=== PATIENT | female | born 1985 | race Caucasian/White ===

== ENCOUNTER 2018-03-25 21:37 | Emergency (ER) | payer OTHER ==
[2018-03-25 22:01] VITALS: RESP 18
[2018-03-25 22:53] LABS: Appearance,Urine Clear (Clear); Basophils # (A) 0.1 k/uL (0-0.2); Basophils % (A) 1 %; Bilirubin,Urine Negative (Negative); Blood,Urine Negative (Negative); Color,Urine Light Yellow; Eosinophils # (A) 0.6 k/uL (0-0.7); Eosinophils % (A) 6 %; Glucose,Urine (UA) Negative (Negative); HCT 46.5 % (34.0-46.0); HGB 15.9 gm/dL (11.4-16.0); Ketones,Urine Negative (Negative); Leukocyte Esterase,Urine Negative (Negative); Lymphocytes # (A) 3.7 k/uL (1.0-4.8); Lymphocytes % (A) 33 %; MCH 30.6 pg (25.0-35.0); MCHC 34.2 g/dL (31.0-37.0); MCV 89.4 fL (80.0-100.0); Mean Platelet Volume 6.5; Monocytes # (A) 0.4 k/uL (0-1.0); Monocytes % (A) 4 %; Neutrophils # (A) 6.2 k/uL (1.3-7.7); Neutrophils % (A) 56 %; Nitrite,Urine Negative (Negative); Platelet Count 264 k/uL (150-450); Protein,Urine Negative (Negative); RDW 12.9 % (11.5-15.5); Specific Gravity,Urine 1.005 (1.001-1.035); Urobilinogen,Urine <2.0 mg/dL (<2.0); WBC 11.2 k/uL (3.8-10.6)
[2018-03-25 23:07] LABS: ALT 25 U/L (9-52); AST 17 U/L (14-36); Albumin 4.6 g/dL (3.5-5.0); Alkaline Phosphatase 68 U/L (38-126); Amylase 45 U/L (30-110); Anion Gap 6 mmol/L; Blood Urea Nitrogen 10 mg/dL (7-17); Calcium 9.8 mg/dL (8.4-10.2); Carbon Dioxide 28 mmol/L (22-30); Chloride 107 mmol/L (98-107); Glucose 90 mg/dL (74-99); Lipase 89 U/L (23-300); Potassium 4.1 mmol/L (3.5-5.1); Sodium 141 mmol/L (137-145); Total Bilirubin 0.3 mg/dL (0.2-1.3); Total Protein 7.5 g/dL (6.3-8.2)
[2018-03-26] MEDS ORDERED: KETOROLAC 30 MG/ML 1 ML VIAL IVP STA (00:50)
[2018-03-26] MEDS ORDERED: ONDANSETRON 4 MG/2 ML VIAL IVP STA (00:50)
[2018-03-26] MEDS ORDERED: SODIUM CHLORIDE 0.9% 1,000 ML IV STA (00:50)
--- NOTE | 2018-03-26 00:59 | ED ---
Abdominal Pain HPI - General Chief Complaint: Abdominal Pain Stated Complaint: Abdminal Pain Time Seen by Provider: 03/26/18 00:30 Source: patient, RN notes reviewed Mode of arrival: wheelchair Limitations: no limitations - History of Present Illness Initial Comments: This is a 32-year-old female who presents to the emergency department with chief complaint of right lower quadrant abdominal pain. Patient states that between 3 and 4 last evening she developed a cramp-like sensation in her right lower quadrant. She states that the pain has steadily progressed and she now describes it as a pressure feeling. Patient states that the pain is constant. Currently rates it as 8/10. There are no relieving or exacerbating factors. Patient does report a history of cholecystectomy and bilateral ovarian cysts. She admits to nausea but denies vomiting. States that prior to 1 PM yesterday she did have loose stools. Denies any fevers or chills, chest pain or shortness of breath. - Related Data Previous Rx's Medication Instructions Recorded Ibuprofen [Motrin] 600 mg PO Q6HR PRN #40 tab 07/09/14 Cyclobenzaprine [Flexeril] 1 - 2 tab PO TID #20 tablet 01/20/15 Hydrocodone/Acetaminophen [[place] 1 each PO Q6HR PRN #20 tab 01/20/15 5-325] Allergies Allergy/AdvReac Type Severity Reaction Status Date / Time amoxicillin [Amoxicillin] Allergy Rash/Hives Verified 01/20/15 10:02 Penicillins Allergy Rash/Hives Verified 01/20/15 10:02 Review of Systems ROS Statement: Those systems with pertinent positive or pertinent negative responses have been documented in the HPI. ROS Other: All systems not noted in ROS Statement are negative. Past Medical History Past Medical History: No Reported History Additional Past Medical History / Comment(s): RECENT ABNORMAL PAP SMEAR. Obstetric history: First was a vaginal delivery in 2006 6 lbs. 9 oz. at 39 weeks. Her second was a vaginal delivery 7 lbs. 6 oz. at 38 weeks. This is her third . She's. had care with Dr. Chavira since 6 weeks gestation. Blood type is A+, rubella nonimmune, hepatitis B negative, HIV nonreactive, RPR nonreactive, quad screen negative. Normal anatomy. ultrasound at 19 weeks. History of Any Multi-Drug Resistant Organisms: None Reported Past Surgical History: Cholecystectomy Additional Past Surgical History / Comment(s): D&C, ovarian cystectomy Past Anesthesia/Blood Transfusion Reactions: Motion Sickness, Postoperative Nausea & Vomiting (PONV) Past Psychological History: No Psychological Hx Reported Smoking Status: Current every day smoker Past Alcohol Use History: None Reported Past Drug Use History: None Reported - Past Family History Mother Family Medical History: Cancer, Deep Vein Thrombosis (DVT) General Exam - General Exam Comments Initial Comments: General: Awake and alert, well-developed; in no apparent distress. HEENT: Head atraumatic, normocephalic. Pupils are equal, round and reactive to light. Extraocular movements intact. Oropharynx moist without erythema or exudate. Neck: Supple. Normal ROM. Cardiovascular: Regular rate and rhythm. No murmurs, rubs or gallops. Chest symmetrical. Respiratory: Lungs clear to auscultation bilaterally. No wheezes, rales or rhonchi. Normal respiratory effort with no use of accessory muscles. Abdomen: Soft, non-distended. Tenderness on palpation of right lower quadrant with rebound. No rigidity or guarding. Normal bowel sounds in all 4 quadrants. Musculoskeletal: Normal ROM, no tenderness bilateral upper and lower extremities. Skin: [place], warm and dry without rashes or lesions. Neurological: Alert and oriented x3. CN II-XII grossly intact. Speech is fluent and answers are appropriate. No focal neuro deficits. Psychiatric: Normal mood and affect. No overt signs of depression or anxiety noted. Limitations: no limitations Course Vital Signs 03/25/18 03/26/18 03/26/18 21:58 00:30 02:25 Temperature 98.0 F 98.1 F 97.6 F Pulse Rate 83 68 66 Respiratory 18 18 18 Rate Blood Pressure 120/77 122/59 115/59 O2 Sat by Pulse 98 97 97 Oximetry Medical Decision Making - Medical Decision Making This is a 32-year-old female who presents to the emergency department with chief complaint right lower quadrant abdominal pain that started yesterday. Patient describes the pain as a dull cramping sensation that has progressed into a pressure like feeling. Reports nausea but denies vomiting. There is tenderness on palpation of the right lower quadrant with rebound. Ultrasound of the pelvis and appendix was obtained which revealed no significant abnormalities. Appendix was not visualized in its entirety and ultrasound of the pelvis did reveal simple ovarian cysts. On reexamination, patient continued to complain of pain. Discussed obtaining a CT scanned and patient consents to this. Computed tomography scan again showed bilateral ovarian cysts , however no other acute abnormalities. Normal appendix. Patient's vital signs are stable and she is in no acute distress. She will be discharged home at this time. Recommended following up with her primary care provider within 1- 2 days. She is in agreement and voices understanding. All questions were answered. - Lab Data Result diagrams: 03/25/18 22:25 03/25/18 22:25 Lab Results 03/25/18 03/25/18 03/25/18 Range/Units 22:25 22:25 22:25 WBC 11.2 H (3.8-10.6) k/uL RBC 5.20 (3.80-5.40) m/uL Hgb 15.9 (11.4-16.0) gm/dL Hct 46.5 H (34.0-46.0) % MCV 89.4 (80.0-100.0) fL MCH 30.6 (25.0-35.0) pg MCHC 34.2 (31.0-37.0) g/dL RDW 12.9 (11.5-15.5) % Plt Count 264 (150-450) k/uL Neutrophils % 56 % Lymphocytes % 33 % Monocytes % 4 % Eosinophils % 6 % Basophils % 1 % Neutrophils # 6.2 (1.3-7.7) k/uL Lymphocytes # 3.7 (1.0-4.8) k/uL Monocytes # 0.4 (0-1.0) k/uL Eosinophils # 0.6 (0-0.7) k/uL Basophils # 0.1 (0-0.2) k/uL Sodium 141 (137-145) mmol/L Potassium 4.1 (3.5-5.1) mmol/L Chloride 107 (98-107) mmol/L Carbon Dioxide 28 (22-30) mmol/L Anion Gap 6 mmol/L BUN 10 (7-17) mg/dL Creatinine 0.70 (0.52-1.04) mg/dL Est GFR (CKD-EPI)AfAm >90 (>60 ml/min/1.73 sqM) Est GFR (CKD-EPI)NonAf >90 (>60 ml/min/1.73 sqM) Glucose 90 (74-99) mg/dL Plasma Lactic Acid Antony 0.9 (0.7-2.0) mmol/L Calcium 9.8 (8.4-10.2) mg/dL Total Bilirubin 0.3 (0.2-1.3) mg/dL AST 17 (14-36) U/L ALT 25 (9-52) U/L Alkaline Phosphatase 68 (38-126) U/L Total Protein 7.5 (6.3-8.2) g/dL Albumin 4.6 (3.5-5.0) g/dL Amylase 45 (30-110) U/L Lipase 89 (23-300) U/L Urine Color Urine Appearance (Clear) Urine pH (5.0-8.0) Ur Specific [place] (1.001-1.035) Urine Protein (Negative) Urine Glucose (UA) (Negative) Urine Ketones (Negative) Urine Blood (Negative) Urine Nitrite (Negative) Urine Bilirubin (Negative) Urine Urobilinogen (<2.0) mg/dL Ur Leukocyte Esterase (Negative) Urine HCG, Qual (Not Detectd) 03/25/18 03/25/18 Range/Units 22:25 22:25 WBC (3.8-10.6) k/uL RBC (3.80-5.40) m/uL Hgb (11.4-16.0) gm/dL Hct (34.0-46.0) % MCV (80.0-100.0) fL MCH (25.0-35.0) pg MCHC (31.0-37.0) g/dL RDW (11.5-15.5) % Plt Count (150-450) k/uL Neutrophils % % Lymphocytes % % Monocytes % % Eosinophils % % Basophils % % Neutrophils # (1.3-7.7) k/uL Lymphocytes # (1.0-4.8) k/uL Monocytes # (0-1.0) k/uL Eosinophils # (0-0.7) k/uL Basophils # (0-0.2) k/uL Sodium (137-145) mmol/L Potassium (3.5-5.1) mmol/L Chloride (98-107) mmol/L Carbon Dioxide (22-30) mmol/L Anion Gap mmol/L BUN (7-17) mg/dL Creatinine (0.52-1.04) mg/dL Est GFR (CKD-EPI)AfAm (>60 ml/min/1.73 sqM) Est GFR (CKD-EPI)NonAf (>60 ml/min/1.73 sqM) Glucose (74-99) mg/dL Plasma Lactic Acid Antony (0.7-2.0) mmol/L Calcium (8.4-10.2) mg/dL Total Bilirubin (0.2-1.3) mg/dL AST (14-36) U/L ALT (9-52) U/L Alkaline Phosphatase (38-126) U/L Total Protein (6.3-8.2) g/dL Albumin (3.5-5.0) g/dL Amylase (30-110) U/L Lipase (23-300) U/L Urine Color Light Yellow Urine Appearance Clear (Clear) Urine pH 6.0 (5.0-8.0) Ur Specific [place] 1.005 (1.001-1.035) Urine Protein Negative (Negative) Urine Glucose (UA) Negative (Negative) Urine Ketones Negative (Negative) Urine Blood Negative (Negative) Urine Nitrite Negative (Negative) Urine Bilirubin Negative (Negative) Urine Urobilinogen <2.0 (<2.0) mg/dL Ur Leukocyte Esterase Negative (Negative) Urine HCG, Qual Not Detected (Not Detectd) - Radiology Data Radiology results: report reviewed Transvaginal ultrasound impression: Normal uterus and endometrium. No solid adnexal mass. No evidence of ovarian torsion. Simple bilateral ovarian cysts. Ultrasound abdomen appy impression: Appendix is not seen. No solid or cystic masses identified. CT abdomen and pelvis with contrast impression: Bilateral ovarian cysts. Otherwise negative computed tomography scan of the abdomen and pelvis. Normal appendix. Disposition Clinical Impression: Abdominal pain Disposition: HOME SELF-CARE Condition: Good Instructions: Abdominal Pain (ED) Additional Instructions: Please follow up with primary care provider within 1-2 days. Return to emergency department if symptoms should worsen or any concerns arise. Is patient prescribed a controlled substance at d/c from ED?: No Referrals: None,Stated [Primary Care Provider] - 1-2 days Time of Disposition: 02:33
--- NOTE | 2018-03-26 01:39 | US ---
EXAMINATION TYPE: US abdomen APPY DATE OF EXAM: 03/26/2018 COMPARISON: NONE CLINICAL HISTORY: Pain. RLQ pain APPENDIX Is the appendix seen in its entirety from the proximal cecum to distal end: No Is the appendix compressible: Yes Does the appendix wall appear hypervascular: No Is an appendicolith present: No Is there inflammatory changes or free fluid present: No Appendix is not seen in its entirety. IMPRESSION: Appendix is not seen. No solid or cystic masses identified.
--- NOTE | 2018-03-26 01:40 | US ---
EXAMINATION TYPE: US transvaginal DATE OF EXAM: 03/26/2018 COMPARISON: NONE CLINICAL HISTORY: Pain. RLQ pain TECHNIQUE: Transvaginal (TV). EXAM MEASUREMENTS: Uterus: 6.2 x 4.4 x 5.6 cm Endometrial Stripe: 0.7 cm Right Ovary: 2.8 x 2.0 x 2.4 cm Left Ovary: 2.0 x 2.3 x 4.3 cm 1. Uterus: Retroverted wnl 2. Endometrium: 3. Right Ovary: Cystic area seen measuring 2.0 x 1.6 x 2.2 cm 4. Left Ovary: Cystic area seen measuring 1.8 x 1.4 x 1.8 cm Spectral, color and waveform doppler imaging shows good arterial and venous flow within the ovaries ; there is no evidence for ovarian torsion. 5. Bilateral Adnexa: wnl 6. Posterior cul-de-sac: wnl IMPRESSION: Normal uterus and endometrium. No solid adnexal mass. No evidence of ovarian torsion. Sim ple bilateral ovarian cysts.
--- NOTE | 2018-03-26 02:20 | CT ---
EXAMINATION TYPE: CT abdomen pelvis w con DATE OF EXAM: 03/26/2018 COMPARISON: None HISTORY: No prior, RLQ pain, elevated WBC CT DLP: 370.20 mGycm Automated exposure control for dose reduction was used. TECHNIQUE: Helical acquisition of images was performed from the lung bases through the pelvis. CONTRAST: Performed without Oral Contrast and with IV Contrast, patient injected with 100 mL of Isovue 300. FINDINGS: Lung bases are clear. There is no pleural effusion. There are small hiatal hernia. Heart size is norm al. Liver spleen pancreas appear normal. There are clips from cholecystectomy. Bile ducts are not dilated . There is no adrenal mass. Kidneys show satisfactory contrast opacification. There is no hydronephro sis. There is no retroperitoneal adenopathy. There is no ascites. Bladder distends smoothly. There is no lytic mass. There are cysts on both ovaries that measure approximately 2 cm. There is no free fl uid in the pelvis. The appendix appears normal. Appendix is medial and extends into the pelvis. Bony structures are intact. IMPRESSION: BILATERAL OVARIAN CYSTS. OTHERWISE NEGATIVE CT SCAN OF THE ABDOMEN AND PELVIS. NORMAL APPENDIX.
[2018-03-26 02:26] VITALS: BP 115/59; PULSE 66; TEMP 97.6
== END 2018-03-26 02:48 | disposition home or self-care (01) ==
LOC: EC 21:37
DX: R10.31 Right lower quadrant pain (principal); R11.0 Nausea; N83.201 Unspecified ovarian cyst, right side; N83.202 Unspecified ovarian cyst, left side; F17.200 Nicotine dependence, unspecified, uncomplicated; Z90.49 Acquired absence of other specified parts of digestive tract; Z88.0 Allergy status to penicillin
CPT/HCPCS: 36415; 80053; 82150; 83605; 83690; 85025; 81003; 81025; 87040; 93975; 76705; 76830; 74177; 99284; 96374; 96375; 96361 ×2; J2405; J1885; Q9967

== ENCOUNTER 2018-08-31 17:04 | Observation (INO) | payer OTHER ==
[2018-08-31] MEDS ORDERED: SODIUM CHLORIDE 0.9% 1,000 ML IV STA (17:54)
[2018-08-31] MEDS ORDERED: KETOROLAC 30 MG/ML 1 ML VIAL IVP STA (17:54)
--- NOTE | 2018-08-31 17:54 | ED ---
General Adult HPI - General Source: patient, RN notes reviewed Mode of arrival: ambulatory Limitations: no limitations <Wiliam Berrios - Last Filed: 08/31/18 20:54> <Chapin Logan - Last Filed: 08/31/18 20:56> - General Chief complaint: Abdominal Pain Stated complaint: ABDOMINAL PAIN, RT SIDE Time Seen by Provider: 08/31/18 17:27 - History of Present Illness Initial comments: 32-year-old female presents to the emergency department for a chief complaint of right sided abdominal pain times one day. Patient states this started yesterday. Patient describes the pain as a pressure in her right mid abdomen. She rates her pain at a 7 out of 10. Patient denies any alleviating factors. Patient denies anything making the pain worse. Patient admits to nausea but denies vomiting. Patient denies dysuria. She states her bowel movements have been softer and more frequent than normal. Patient denies fevers or chills. Patient does admit to history of bilateral ovarian cysts. She denies appendectomy. Patient has no other complaints at this time including shortness of breath, chest pain, headache, or visual changes. ( Wiliam Berrios) - Related Data Home Medications Medication Instructions Recorded Confirmed No Known Home Medications 08/31/18 08/31/18 Allergies Allergy/AdvReac Type Severity Reaction Status Date / Time amoxicillin [Amoxicillin] Allergy Rash/Hives Verified 08/31/18 17:14 Penicillins Allergy Rash/Hives Verified 08/31/18 17:14 Review of Systems ROS Other: All systems not noted in ROS Statement are negative. <Wiliam Berrios - Last Filed: 08/31/18 20:54> ROS Other: All systems not noted in ROS Statement are negative. <Chapin Logan - Last Filed: 08/31/18 20:56> ROS Statement: Those systems with pertinent positive or pertinent negative responses have been documented in the HPI. Past Medical History Past Medical History: No Reported History Additional Past Medical History / Comment(s): RECENT ABNORMAL PAP SMEAR. Obstetric history: First was a vaginal delivery in 2006 6 lbs. 9 oz. at 39 weeks. Her second was a vaginal delivery 7 lbs. 6 oz. at 38 weeks. This is her third . She's. had care with Dr. Chavira since 6 weeks gestation. Blood type is A+, rubella nonimmune, hepatitis B negative, HIV nonreactive, RPR nonreactive, quad screen negative. Normal anatomy. ultrasound at 19 weeks. History of Any Multi-Drug Resistant Organisms: None Reported Past Surgical History: Cholecystectomy Additional Past Surgical History / Comment(s): D&C, ovarian cystectomy Past Anesthesia/Blood Transfusion Reactions: Motion Sickness, Postoperative Nausea & Vomiting (PONV) Past Psychological History: No Psychological Hx Reported Smoking Status: Current every day smoker Past Alcohol Use History: Rare Past Drug Use History: None Reported - Past Family History Mother Family Medical History: Cancer, Deep Vein Thrombosis (DVT) <Wiliam Berrios P - Last Filed: 08/31/18 20:54> General Exam Limitations: no limitations General appearance: alert, in no apparent distress Head exam: Present: atraumatic, normocephalic, normal inspection Eye exam: Present: normal appearance, PERRL, EOMI. Absent: scleral icterus, conjunctival injection, periorbital swelling ENT exam: Present: normal exam, mucous membranes moist Neck exam: Present: normal inspection, full ROM. Absent: tenderness, meningismus, lymphadenopathy Respiratory exam: Present: normal lung sounds bilaterally. Absent: respiratory distress, wheezes, rales, rhonchi, stridor Cardiovascular Exam: Present: regular rate, normal rhythm, normal heart sounds. Absent: systolic murmur, diastolic murmur, rubs, gallop, clicks GI/Abdominal exam: Present: soft, tenderness (Tenderness noted in the right and left lower quadrants.), normal bowel sounds, other (Positive Rovsing sign, positive obturator, mcburney point tenderness). Absent: distended, guarding, rebound (No significant rebound tenderness at this time.), rigid External exam: Present: normal external exam Speculum exam: Present: normal speculum exam. Absent: erythema, vaginal discharge, cervical discharge, vaginal bleeding, foreign body, tissue, laceration By manual exam: Present: normal by manual exam. Absent: cervical motion tenderness, adnexal tenderness, adnexal mass, uterine enlargement, uterine tenderness Neurological exam: Present: alert, oriented X3, CN II-XII intact Psychiatric exam: Present: normal affect, normal mood <Wiliam Berrios P - Last Filed: 08/31/18 20:54> Course <Wiliam Berrios - Last Filed: 08/31/18 20:54> <Chapin Logan - Last Filed: 08/31/18 20:56> Vital Signs 08/31/18 08/31/18 17:12 20:28 Temperature 98.1 F 98.3 F Pulse Rate 84 88 Respiratory 18 19 Rate Blood Pressure 108/69 119/56 O2 Sat by Pulse 99 98 Oximetry - Reevaluation(s) Reevaluation #1: 08/31/18 20:54 Dr. Alexander requests patient be placed on Levaquin. (Wiliam Berrios) Medical Decision Making - Lab Data Result diagrams: 08/31/18 18:15 08/31/18 18:15 <Wiliam Berrios - Last Filed: 08/31/18 20:54> - Lab Data Result diagrams: 08/31/18 18:15 08/31/18 18:15 <Chapin Logan - Last Filed: 08/31/18 20:56> - Medical Decision Making 32-year-old female presents to the emergency department for a chief complaint of abdominal pain times one day. Patient states this started yesterday. Patient states it is mid right-sided abdominal pain. She denies any pelvic pain. I did do a pelvic exam as patient has a history of ovarian cysts and there is no tenderness on exam. Patient refused gonorrhea and chlamydia swabs stating these are painful to her and she no she does not have this. On exam patient is well appearing. Patient does have right lower quadrant tenderness positive McBurney point tenderness. Positive Rovsing and obturator sign. No significant rebound tenderness at this time. Vitals are within acceptable limits. She is afebrile and has not had any fevers here or at home. CMP unremarkable. Urine is negative. CBC does show a white count of 12.9. Blood cultures pending. Patient does not meet sepsis criteria. CT does show a thickened appendix consistent with acute appendicitis which is new compared to old exam. Given the CT finding as well as exam findings patient will be admitted for appendicitis. (Wiliam Berrios) I, Ivan Logan, personally saw and examined the patient. I have reviewed and agree with the PA findings, including all diagnostic interpretations and treatment plans as written unless otherwise stated. I was present for the mcneal portions of any procedures performed and the inclusive time noted for any critical care statement. (Chapin Logan) - Lab Data Lab Results 08/31/18 08/31/18 08/31/18 Range/Units 18:15 18:15 18:15 WBC 12.9 H (3.8-10.6) k/uL RBC 4.79 (3.80-5.40) m/uL Hgb 14.4 (11.4-16.0) gm/dL Hct 43.2 (34.0-46.0) % MCV 90.1 (80.0-100.0) fL MCH 30.0 (25.0-35.0) pg MCHC 33.2 (31.0-37.0) g/dL RDW 12.5 (11.5-15.5) % Plt Count 226 (150-450) k/uL Neutrophils % 73 % Lymphocytes % 20 % Monocytes % 4 % Eosinophils % 2 % Basophils % 0 % Neutrophils # 9.4 H (1.3-7.7) k/uL Lymphocytes # 2.5 (1.0-4.8) k/uL Monocytes # 0.5 (0-1.0) k/uL Eosinophils # 0.3 (0-0.7) k/uL Basophils # 0.0 (0-0.2) k/uL Sodium 139 (137-145) mmol/L Potassium 4.3 (3.5-5.1) mmol/L Chloride 105 (98-107) mmol/L Carbon Dioxide 24 (22-30) mmol/L Anion Gap 10 mmol/L BUN 12 (7-17) mg/dL Creatinine 0.85 (0.52-1.04) mg/dL Est GFR (CKD-EPI)AfAm >90 (>60 ml/min/1.73 sqM) Est GFR (CKD-EPI)NonAf >90 (>60 ml/min/1.73 sqM) Glucose 93 (74-99) mg/dL Calcium 9.5 (8.4-10.2) mg/dL Total Bilirubin 0.6 (0.2-1.3) mg/dL AST 17 (14-36) U/L ALT 21 (9-52) U/L Alkaline Phosphatase 66 (38-126) U/L Total Protein 7.6 (6.3-8.2) g/dL Albumin 4.6 (3.5-5.0) g/dL Amylase 42 (30-110) U/L Lipase 79 (23-300) U/L Urine Color Yellow Urine Appearance Clear (Clear) Urine pH 5.5 (5.0-8.0) Ur Specific [place] 1.025 (1.001-1.035) Urine Protein Trace H (Negative) Urine Glucose (UA) Negative (Negative) Urine Ketones Trace H (Negative) Urine Blood Negative (Negative) Urine Nitrite Negative (Negative) Urine Bilirubin Negative (Negative) Urine Urobilinogen 3.0 (<2.0) mg/dL Ur Leukocyte Esterase Negative (Negative) Urine HCG, Qual (Not Detectd) 08/31/18 Range/Units 18:15 WBC (3.8-10.6) k/uL RBC (3.80-5.40) m/uL Hgb (11.4-16.0) gm/dL Hct (34.0-46.0) % MCV (80.0-100.0) fL MCH (25.0-35.0) pg MCHC (31.0-37.0) g/dL RDW (11.5-15.5) % Plt Count (150-450) k/uL Neutrophils % % Lymphocytes % % Monocytes % % Eosinophils % % Basophils % % Neutrophils # (1.3-7.7) k/uL Lymphocytes # (1.0-4.8) k/uL Monocytes # (0-1.0) k/uL Eosinophils # (0-0.7) k/uL Basophils # (0-0.2) k/uL Sodium (137-145) mmol/L Potassium (3.5-5.1) mmol/L Chloride (98-107) mmol/L Carbon Dioxide (22-30) mmol/L Anion Gap mmol/L BUN (7-17) mg/dL Creatinine (0.52-1.04) mg/dL Est GFR (CKD-EPI)AfAm (>60 ml/min/1.73 sqM) Est GFR (CKD-EPI)NonAf (>60 ml/min/1.73 sqM) Glucose (74-99) mg/dL Calcium (8.4-10.2) mg/dL Total Bilirubin (0.2-1.3) mg/dL AST (14-36) U/L ALT (9-52) U/L Alkaline Phosphatase (38-126) U/L Total Protein (6.3-8.2) g/dL Albumin (3.5-5.0) g/dL Amylase (30-110) U/L Lipase (23-300) U/L Urine Color Urine Appearance (Clear) Urine pH (5.0-8.0) Ur Specific [place] (1.001-1.035) Urine Protein (Negative) Urine Glucose (UA) (Negative) Urine Ketones (Negative) Urine Blood (Negative) Urine Nitrite (Negative) Urine Bilirubin (Negative) Urine Urobilinogen (<2.0) mg/dL Ur Leukocyte Esterase (Negative) Urine HCG, Qual Not Detected (Not Detectd) Disposition Is patient prescribed a controlled substance at d/c from ED?: No Time of Disposition: 20:33 <Wiliam Berrios - Last Filed: 08/31/18 20:54> <Chapin Logan - Last Filed: 08/31/18 20:56> Clinical Impression: Appendicitis Disposition: ADMITTED IP TO THIS HOSP Condition: Good Referrals: Thang Santiago MD [Primary Care Provider] - 1-2 days
[2018-08-31 18:52] LABS: Basophils % (A) 0 %; Eosinophils # (A) 0.3 k/uL (0-0.7); Eosinophils % (A) 2 %; HCT 43.2 % (34.0-46.0); HGB 14.4 gm/dL (11.4-16.0); Lymphocytes # (A) 2.5 k/uL (1.0-4.8); Lymphocytes % (A) 20 %; MCHC 33.2 g/dL (31.0-37.0); MCV 90.1 fL (80.0-100.0); Monocytes # (A) 0.5 k/uL (0-1.0); Monocytes % (A) 4 %; Neutrophils # (A) 9.4 k/uL (1.3-7.7); Neutrophils % (A) 73 %; Platelet Count 226 k/uL (150-450); RBC 4.79 m/uL (3.80-5.40); RDW 12.5 % (11.5-15.5); WBC 12.9 k/uL (3.8-10.6)
[2018-08-31 18:53] LABS: Appearance,Urine Clear (Clear); Bilirubin,Urine Negative (Negative); Blood,Urine Negative (Negative); Color,Urine Yellow; Glucose,Urine (UA) Negative (Negative); Ketones,Urine Trace (Negative); Leukocyte Esterase,Urine Negative (Negative); Nitrite,Urine Negative (Negative); PH, Urine 5.5 (5.0-8.0); Protein,Urine Trace (Negative); Specific Gravity,Urine 1.025 (1.001-1.035)
[2018-08-31 19:03] LABS: ALT 21 U/L (9-52); AST 17 U/L (14-36); Albumin 4.6 g/dL (3.5-5.0); Alkaline Phosphatase 66 U/L (38-126); Amylase 42 U/L (30-110); Blood Urea Nitrogen 12 mg/dL (7-17); Calcium 9.5 mg/dL (8.4-10.2); Carbon Dioxide 24 mmol/L (22-30); Chloride 105 mmol/L (98-107); Glucose 93 mg/dL (74-99); Lipase 79 U/L (23-300); Total Bilirubin 0.6 mg/dL (0.2-1.3); Total Protein 7.6 g/dL (6.3-8.2)
[2018-08-31 19:16] LABS: Anion Gap 10 mmol/L; Potassium 4.3 mmol/L (3.5-5.1); Sodium 139 mmol/L (137-145)
--- NOTE | 2018-08-31 19:46 | CT ---
EXAMINATION TYPE: CT abdomen pelvis w con DATE OF EXAM: 08/31/2018 COMPARISON: 03/26/2019 HISTORY: RLQ pain CT DLP: 585.4 mGycm Automated exposure control for dose reduction was used. TECHNIQUE: Helical acquisition of images was performed from the lung bases through the pelvis. CONTRAST: Performed with Oral Contrast and with IV Contrast, patient injected with 100 mL of Isovue 300. FINDINGS: Lung bases are clear. There is no pleural effusion. Heart size is normal. Liver spleen pancreas appear normal. There are clips from cholecystectomy. Bile ducts are not dilated . Stomach appears normal. There is no adrenal mass. Kidneys show satisfactory contrast opacification. There is no hydronephrosis. Bladder distends smoothly. Ureters are not dilated. There is small amoun t of free fluid in the pelvis. There is no inguinal hernia. Appendix is thickened up to 12 mm. There is no intestinal wall thickening. There are no dilated loops . There is no mesenteric edema or adenopathy. There is no sign of free air. Uterus is retroverted. Yessica mbar spine is intact. Bony pelvis is intact.. IMPRESSION: THICKENED APPENDIX CONSISTENT WITH ACUTE APPENDICITIS. THIS IS A CHANGE COMPARED TO OLD EXAM.
[2018-08-31] MEDS ORDERED: NALOXONE 0.4 MG/ML 1 ML VIAL IV PRN (20:34)
[2018-08-31] MEDS: MORPHINE SULFATE 4 MG/ML SYRINGE IV PRN (21:14)
[2018-08-31] MEDS: SODIUM CHLORIDE 0.9% 1,000 ML IV SCH (21:15)
[2018-08-31] MEDS: LEVOFLOXACIN 750MG-D5W PMX 750 MG in DEXTROSE/WATER 1 150ML.BAG IVPB SCH (21:22)
[2018-08-31 22:03] VITALS: BMI 24.7
[2018-09-01] MEDS: MORPHINE SULFATE 4 MG/ML SYRINGE IV PRN ×3 (03:26→20:29)
[2018-09-01] MEDS: ONDANSETRON 4 MG/2 ML VIAL IVP PRN ×2 (03:26→11:20)
[2018-09-01] MEDS: SODIUM CHLORIDE 0.9% 1,000 ML IV SCH ×4 (05:56→11:46)
[2018-09-01] MEDS ORDERED: SCOPOLAMINE 1.5MG/72HR PATCH TRANSDERM STA (09:50)
[2018-09-01] MEDS ORDERED: diphenhydrAMINE 50 MG/ML 1 ML VIAL IVP PRN (09:51)
--- NOTE | 2018-09-01 10:04 | P.GSHP ---
History of Present Illness H&P Date: 09/01/18 Chief Complaint: Acute appendicitis 32-year-old female presents to the hospital with complaints of right lower quadrant pain that began 2 days ago. Pain increasing in severity. Some nausea. Positive anorexia. No vomiting. No fevers. White blood cell count elevated. CAT scan confirms acute appendicitis. No history of similar events. - Review of Systems Comment: The patient denies any acute changes in vision or hearing, no dysphagia or odynophagia, no chest pain or shortness of breath, no dysuria or hematuria, no headache, no runny nose, no rectal bleeding or melena, no unexplained weight loss Past Medical History Past Medical History: No Reported History Additional Past Medical History / Comment(s): RECENT ABNORMAL PAP SMEAR. Obstetric history: First was a vaginal delivery in 2006 6 lbs. 9 oz. at 39 weeks. Her second was a vaginal delivery 7 lbs. 6 oz. at 38 weeks. This is her third . She's. had care with Dr. Chavira since 6 weeks gestation. Blood type is A+, rubella nonimmune, hepatitis B negative, HIV nonreactive, RPR nonreactive, quad screen negative. Normal anatomy. ultrasound at 19 weeks. History of Any Multi-Drug Resistant Organisms: None Reported Past Surgical History: Cholecystectomy Additional Past Surgical History / Comment(s): D&C, ovarian cystectomy Past Anesthesia/Blood Transfusion Reactions: Motion Sickness, Postoperative Nausea & Vomiting (PONV) Past Psychological History: No Psychological Hx Reported Smoking Status: Current every day smoker Past Alcohol Use History: Rare Past Drug Use History: None Reported - Past Family History Mother Family Medical History: Cancer, Deep Vein Thrombosis (DVT) Medications and Allergies Home Medications Medication Instructions Recorded Confirmed Type Blisovi 1 tab PO HS 08/31/18 08/31/18 History Ibuprofen [Motrin] 800 mg PO TID PRN 08/31/18 08/31/18 History Allergies Allergy/AdvReac Type Severity Reaction Status Date / Time amoxicillin [Amoxicillin] Allergy Rash/Hives Verified 08/31/18 21:08 Penicillins Allergy Rash/Hives Verified 08/31/18 21:08 Surgical - Exam Vital Signs Temp Pulse Resp BP Pulse Ox 98.1 F 84 18 108/69 99 08/31/18 17:12 08/31/18 17:12 08/31/18 17:12 08/31/18 17:12 08/31/18 17:12 Physical exam: General: Well-developed, well-nourished HEENT: Normocephalic, sclerae nonicteric Abdomen: Moderate right lower quadrant tenderness, nondistended Extremities: No edema Neuro: Alert and oriented Results - Labs 08/31/18 18:15 08/31/18 18:15 Abnormal Lab Results - Last 24 Hours (Table) 08/31/18 08/31/18 Range/Units 18:15 18:15 WBC 12.9 H (3.8-10.6) k/uL Neutrophils # 9.4 H (1.3-7.7) k/uL Urine Protein Trace H (Negative) Urine Ketones Trace H (Negative) Diabetes panel 08/31/18 Range/Units 18:15 Sodium 139 (137-145) mmol/L Potassium 4.3 (3.5-5.1) mmol/L Chloride 105 (98-107) mmol/L Carbon Dioxide 24 (22-30) mmol/L BUN 12 (7-17) mg/dL Creatinine 0.85 (0.52-1.04) mg/dL Glucose 93 (74-99) mg/dL Calcium 9.5 (8.4-10.2) mg/dL AST 17 (14-36) U/L ALT 21 (9-52) U/L Alkaline Phosphatase 66 (38-126) U/L Total Protein 7.6 (6.3-8.2) g/dL Albumin 4.6 (3.5-5.0) g/dL Calcium panel 08/31/18 Range/Units 18:15 Calcium 9.5 (8.4-10.2) mg/dL Albumin 4.6 (3.5-5.0) g/dL Pituitary panel 08/31/18 Range/Units 18:15 Sodium 139 (137-145) mmol/L Potassium 4.3 (3.5-5.1) mmol/L Chloride 105 (98-107) mmol/L Carbon Dioxide 24 (22-30) mmol/L BUN 12 (7-17) mg/dL Creatinine 0.85 (0.52-1.04) mg/dL Glucose 93 (74-99) mg/dL Calcium 9.5 (8.4-10.2) mg/dL Adrenal panel 08/31/18 Range/Units 18:15 Sodium 139 (137-145) mmol/L Potassium 4.3 (3.5-5.1) mmol/L Chloride 105 (98-107) mmol/L Carbon Dioxide 24 (22-30) mmol/L BUN 12 (7-17) mg/dL Creatinine 0.85 (0.52-1.04) mg/dL Glucose 93 (74-99) mg/dL Calcium 9.5 (8.4-10.2) mg/dL Total Bilirubin 0.6 (0.2-1.3) mg/dL AST 17 (14-36) U/L ALT 21 (9-52) U/L Alkaline Phosphatase 66 (38-126) U/L Total Protein 7.6 (6.3-8.2) g/dL Albumin 4.6 (3.5-5.0) g/dL Assessment and Plan (1) Appendicitis Narrative/Plan: 32-year-old female with acute appendicitis. Will proceed with laparoscopic, possible open appendectomy. Risks of bleeding, infection, abscess, bladder and bowel injury, conversion to an open procedure were reviewed. She understands and wishes to proceed. In the ER records there was suggestion that the patient may be . I believe this is just populate in from a previous note. Anesthesia is requesting a second urine hCG before we begin this case. I did contact the ER to look into the medical records so that this type of confusion does not occur in the future. Current Visit: Yes Status: Acute Code(s): K37 - UNSPECIFIED APPENDICITIS SNOMED Code(s): 40200146
[2018-09-01] MEDS ORDERED: MIDAZOLAM 2 MG/2 ML VIAL ONE (10:14)
[2018-09-01] MEDS ORDERED: fentaNYL (PF) 50 MCG/ML 2 ML AMP ONE (10:14)
[2018-09-01] MEDS ORDERED: NEOSTIGMINE 1 MG/ML 10 ML VIAL ONE (10:14)
[2018-09-01] MEDS ORDERED: KETOROLAC 30 MG/ML 1 ML VIAL ONE (10:14)
[2018-09-01] MEDS ORDERED: LIDOCAINE 1% INJ 10MG/ML (20 ML MDV) ONE (10:14)
[2018-09-01] MEDS ORDERED: GLYCOPYRROLATE 0.2 MG/ML 2 ML VIAL ONE (10:14)
[2018-09-01] MEDS ORDERED: HYDROmorphone (PF) 1 MG/ML ONE (10:14)
[2018-09-01] MEDS ORDERED: SUCCINYLCHOLINE CHLORIDE 100 MG/5 ML SYR IV ONE (10:14)
[2018-09-01] MEDS ORDERED: PROPOFOL 10 MG/ML 20 ML VIAL IV ONE (10:14)
[2018-09-01] MEDS ORDERED: BUPIVACAIN-EPI 0.25%-1:200,000 30 ML VIAL SQ ONE ×2 (10:43→10:58)
[2018-09-01] MEDS ORDERED: IV FLUID CONTINUATION 400 ML IV ONE ×2 (10:44)
[2018-09-01] MEDS ORDERED: HYDROmorphone 0.5 MG/0.5 ML SYRINGE IVP PRN (11:06)
--- NOTE | 2018-09-01 11:08 | P.OP ---
Date of Procedure: 09/01/18 Procedure(s) Performed: PREOPERATIVE DIAGNOSIS: Acute appendicitis POSTOPERATIVE DIAGNOSIS: Same PROCEDURE: Laparoscopic appendectomy SURGEON: Catherine EBL: Total ANESTHESIA: General COMPLICATIONS: None OPERATIVE PROCEDURE: The patient was brought and placed on the operating table in the supine position. The patient was placed under general anesthesia. The abdomen was prepped and draped in the usual sterile fashion. A small vertical infraumbilical incision was made. The fascia was retracted anteriorly with Darnell forceps. The Veress needle was advanced into the perineal cavity. The saline drop test was normal. Insufflation took place to 15 mmHg. A 5 mm trocar was then placed. An additional 5 mm suprapubic trocar was placed under direct visualization as well as a 12 mm left lower quadrant trocar under direct visualization. The appendix was inspected. It was acutely inflamed. The mesoappendix was dissected. The base of the appendix was divided using a linear 45 mm intestinal stapler. The mesentery itself was divided using a cuevas load stapler. A small area of bleeding was seen along the staple line and clipped using a 12 mm clipper. The area was then irrigated. No further purulence or bleeding was seen. The appendix was brought out of the peritoneal cavity through the left lower quadrant trocar site using a Endo Catch bag. The fascia at the 12 mm site was closed using a [id number] 0 Vicryl stitch. The skin at all 3 sites was closed using 4-0 Monocryl sutures. Skin glue and sterile dressings then applied. DISPOSITION: Stable to recovery room
[2018-09-01 11:28] VITALS: RESP 16
[2018-09-01] MEDS ORDERED: PROMETHAZINE INJ 25 MG/ML 1 ML VIAL IVPB ONE (11:42)
[2018-09-01] MEDS: HEPARIN SODIUM,PORCINE 5,000 UNIT/ML 1 ML VIAL SQ SCH ×2 (17:03→23:13)
[2018-09-01] MEDS: LEVOFLOXACIN 750MG-D5W PMX 750 MG in DEXTROSE/WATER 1 150ML.BAG IVPB SCH (21:12)
[2018-09-02] MEDS: SODIUM CHLORIDE 0.9% 1,000 ML IV SCH (06:17)
[2018-09-02 07:14] VITALS: BP 117/68; PULSE 68; TEMP 98.7
[2018-09-02] MEDS: HEPARIN SODIUM,PORCINE 5,000 UNIT/ML 1 ML VIAL SQ SCH (08:10)
[2018-09-02] MEDS: HYDROcodone/APAP 5-325MG 1 EACH TAB PO PRN ×2 (08:10→12:31)
--- NOTE | 2018-09-02 10:12 | P.DS ---
Providers Date of admission: 08/31/18 20:52 Expected date of discharge: 09/02/18 Attending physician: Bakari Alexander Primary care physician: Thang Santiago - Discharge Diagnosis(es) (1) Appendicitis Patient minute through the emergency department with acute appendicitis. She underwent laparoscopic appendectomy yesterday. Doing well today. A well- controlled. She is afebrile. She'll be discharged home on oral pain pills. She will follow up in 2 weeks. Current Visit: Yes Status: Acute Patient Condition at Discharge: Good Plan - Discharge Summary Discharge Rx Participant: Yes New Discharge Prescriptions: No Action Blisovi 1 tab PO HS Ibuprofen [Motrin] 800 mg PO TID PRN PRN Reason: Pain Discharge Medication List Blisovi 1 tab PO HS 08/31/18 [History] Ibuprofen [Motrin] 800 mg PO TID PRN 08/31/18 [History] Follow up Appointment(s)/Referral(s): Thang Santiago MD [Primary Care Provider] - 1-2 days
== END 2018-09-02 12:33 | disposition home or self-care (01) ==
LOC: EC 17:04 → 4SSUR 20:52
PROVIDERS: ADMIT Surgery; ATTEND Surgery
DX: K35.80 Unspecified acute appendicitis (principal); K38.1 Appendicular concretions; Z90.49 Acquired absence of other specified parts of digestive tract; F17.200 Nicotine dependence, unspecified, uncomplicated; Z88.0 Allergy status to penicillin
CPT/HCPCS: 44970; 96376; 96375 ×2; 96374; 99285; 36415; 88304; 80053; 82150; 83690; 85025; 81003; 81025; 84703; 87040; 74177; G0378 ×3; J2250; J2270 ×2; J1644 ×2; J2550; J2710; J2405; J2001; J3010; J1885 ×2; J1170; J1956 ×2; J0330; J2704; Q9967

== ENCOUNTER → 2018-09-25 | Outpatient (CLI) | payer OTHER ==
--- NOTE | 2018-09-25 17:50 | CT ---
EXAMINATION TYPE: CT abdomen pelvis wo con DATE OF EXAM: 09/25/2018 COMPARISON: 08/31/2018 HISTORY: left sided abdominal pain post appy CT DLP: 578 mGycm Automated exposure control for dose reduction was used. TECHNIQUE: Helical acquisition of images was performed from the lung bases through the pelvis. FINDINGS: There is oral contrast. Lung bases are clear. There is no pleural effusion. Heart size is normal. Ilda er spleen pancreas appear normal. There are clips from cholecystectomy. Bile ducts are not dilated. T here is no adrenal mass. Kidneys have normal size and contour. There is no hydronephrosis. There is n o retroperitoneal adenopathy. There are clips from appendectomy. The ureters are not dilated. Bladder distends smoothly. There is no free fluid in the pelvis. There i s no evidence of a pelvic mass. There is no inguinal hernia. I see no evidence of a bowel obstruction . There is no sign of intestinal wall thickening. There is no sign of free air. There is no ascites. The lumbar spine is intact. I see no bony destructive process. IMPRESSION: APPENDECTOMY. CHOLECYSTECTOMY. NO SIGN OF ACUTE ABDOMEN AND PELVIS. I DO NOT SEE A CAUSE FOR LEFT ASYA E PAIN.
== END | disposition home or self-care (01) ==
LOC: RADCTMAIN 15:17
PROVIDERS: ATTEND Nurse Practitioner Adult Health
DX: R10.12 Left upper quadrant pain (principal); R10.32 Left lower quadrant pain; Z88.0 Allergy status to penicillin; Z90.49 Acquired absence of other specified parts of digestive tract; Z90.89 Acquired absence of other organs
CPT/HCPCS: 74176

== ENCOUNTER 2019-08-31 02:41 | Emergency (ER) | payer OTHER ==
[2019-08-31 02:47] VITALS: BP 132/92; PULSE 68; RESP 18; TEMP 97.9
[2019-08-31] MEDS ORDERED: KETOROLAC 30 MG/ML 1 ML VIAL IM STA (02:58)
[2019-08-31] MEDS ORDERED: DIAZEPAM 5 MG/ML 2 ML INJ IM ONE (02:59)
[2019-08-31] MEDS ORDERED: LIDOCAINE 5% PATCH TOPICAL STA (02:59)
--- NOTE | 2019-08-31 03:06 | ED ---
Neck Injury/Pain HPI - General Chief Complaint: Neck Pain/Injury Stated Complaint: Neck Pain/Facial Numbness Time Seen by Provider: 08/31/19 02:49 Mode of arrival: ambulatory Limitations: no limitations - History of Present Illness Initial Comments: 33-year-old female patient is brought to the emergency department today for evaluation of left-sided neck and shoulder pain. Patient states this started yesterday and has been worsening significantly. Patient states she did try taking Tylenol and did not help. She is not reporting pain radiating into her face along with a numb feeling. She denies any fevers or chills. Denies any known injury. States she has been sick with bronchitis with denies any current wheezing. Patient is reporting pain radiating into the left upper arm. Denies any chest pain or shortness of breath. She denies nausea or vomiting. Denies any difficulty with speech. Significant other denies any evidence for facial droop or confusion. She denies numbness or tingling to her upper extremities. Patient denies any headache, back pain, chest pain, shortness of breath, dizziness, weakness, abdominal pain, nausea, vomiting, or difficulties with bowel movements or urination. - Related Data Home Medications Medication Instructions Recorded Confirmed Blisovi 1 tab PO HS 08/31/18 08/31/18 Ibuprofen [Motrin] 800 mg PO TID PRN 08/31/18 08/31/18 Previous Rx's Medication Instructions Recorded HYDROcodone/APAP 5-325MG [[place] 1 tab PO Q4H PRN 3 Days #10 tab 09/02/18 5-325] Cyclobenzaprine [Flexeril] 10 mg PO TID #15 tab 08/31/19 Naproxen [EC-Naprosyn] 500 mg PO BID PRN #30 tablet. 08/31/19 Allergies Allergy/AdvReac Type Severity Reaction Status Date / Time amoxicillin [Amoxicillin] Allergy Rash/Hives Verified 08/31/19 02:47 Penicillins Allergy Rash/Hives Verified 08/31/19 02:47 Review of Systems ROS Statement: Those systems with pertinent positive or pertinent negative responses have been documented in the HPI. ROS Other: All systems not noted in ROS Statement are negative. Past Medical History Past Medical History: No Reported History Additional Past Medical History / Comment(s): RECENT ABNORMAL PAP SMEAR. Obstetric history: First was a vaginal delivery in 2006 6 lbs. 9 oz. at 39 weeks. Her second was a vaginal delivery 7 lbs. 6 oz. at 38 weeks. This is her third . She's. had care with Dr. Chavira since 6 weeks gestation. Blood type is A+, rubella nonimmune, hepatitis B negative, HIV nonreactive, RPR nonreactive, quad screen negative. Normal anatomy. ultrasound at 19 weeks. History of Any Multi-Drug Resistant Organisms: None Reported Past Surgical History: Cholecystectomy Additional Past Surgical History / Comment(s): D&C, ovarian cystectomy Past Anesthesia/Blood Transfusion Reactions: Motion Sickness, Postoperative [place] sea & Vomiting (PONV) Past Psychological History: No Psychological Hx Reported Smoking Status: Current every day smoker Past Alcohol Use History: Rare Past Drug Use History: None Reported - Past Family History Mother Family Medical History: Cancer, Deep Vein Thrombosis (DVT) General Exam Limitations: no limitations General appearance: alert, in no apparent distress, other (This is a well- developed, well-nourished adult female patient in no acute distress. Vital signs upon presentation are temperature 97.9F, pulse 68, respirations 18, blood pressure 132/92, pulse ox 97% on room air.) Eye exam: Present: normal appearance, PERRL, EOMI. Absent: scleral icterus, conjunctival injection, periorbital swelling ENT exam: Present: normal exam, normal oropharynx, mucous membranes moist Respiratory exam: Present: normal lung sounds bilaterally. Absent: respiratory distress, wheezes, rales, rhonchi, stridor Cardiovascular Exam: Present: regular rate, normal rhythm, normal heart sounds. Absent: systolic murmur, diastolic murmur, rubs, gallop, clicks GI/Abdominal exam: Present: soft, normal bowel sounds. Absent: distended, tenderness, guarding, rebound, rigid Extremities exam: Present: normal inspection, full ROM, normal capillary refill, other (Skin to the upper extremities is pink, warm, dry. Cap refills less than 3 seconds. Radial pulses are 2+ and equal bilaterally.). Absent: tenderness, pedal edema, joint swelling, calf tenderness Back exam: Present: muscle spasm, paraspinal tenderness (Left thoracic paraspinal tenderness) Neurological exam: Present: alert, oriented X3, CN II-XII intact Psychiatric exam: Present: normal affect, normal mood Skin exam: Present: warm, dry, intact, normal color. Absent: rash Course Vital Signs 08/31/19 02:45 Temperature 97.9 F Pulse Rate 68 Respiratory 18 Rate Blood Pressure 132/92 O2 Sat by Pulse 97 Oximetry Medical Decision Making - Medical Decision Making 33-year-old female patient presents to the emergency department today for evaluation of left neck pain radiating down into her left posterior shoulder. Physical examination reveals muscle spasm over the left upper back. EKG was normal sinus rhythm. She was given anti-inflammatory muscle relaxer. Upon reevaluation she still reports some pain but states it is improved. She'll be discharged with a course of anti-inflammatories and muscle relaxers. She is educated regarding application of ice and heat. She is instructed to follow-up with her primary care physician for recheck in 1-2 days. Return parameters were discussed in detail. She verbalizes understanding and agrees with this plan. - EKG Data -: EKG Interpreted by Me EKG Comments: EKG obtained at 0254 shows sinus rhythm with premature atrial complexes. Ventricular rate of 71, MS interval 142, QRS duration 86, QT 372, QTc 404. No evidence of ST elevation or depression. Disposition Clinical Impression: Spasmodic torticollis Disposition: HOME SELF-CARE Condition: Good Instructions (If sedation given, give patient instructions): Spasmodic Torticollis (ED) Additional Instructions: Take medications as directed. Follow-up with your primary care physician for recheck in 1-2 days. Return to the emergency department immediately for any new, worsening, or concerning symptoms. Prescriptions: Naproxen [EC-Naprosyn] 500 mg PO BID PRN #30 tablet.dr BESS Reason: Pain Cyclobenzaprine [Flexeril] 10 mg PO TID #15 tab Is patient prescribed a controlled substance at d/c from ED?: No Referrals: Thang Santiago MD [Primary Care Provider] - 1-2 days Time of Disposition: 03:57
== END 2019-08-31 04:01 | disposition home or self-care (01) ==
LOC: EC 02:41
DX: G24.3 Spasmodic torticollis (principal); F17.200 Nicotine dependence, unspecified, uncomplicated; Z88.0 Allergy status to penicillin; Z79.3 Long term (current) use of hormonal contraceptives
CPT/HCPCS: 93005; 99283; 96372 ×2; J3360; J1885

== ENCOUNTER → 2020-05-21 | Outpatient (CLI) | payer OTHER ==
--- NOTE | 2020-05-21 09:27 | US ---
EXAMINATION TYPE: Transabdominal DATE OF EXAM: 05/21/2020 9:11 AM COMPARISON: NONE CLINICAL HISTORY: Z36 confirm dates. EXAM PERFORMED: Transvaginal (TV) and Transabdominal (TA) endovaginal scanning performed for better evaluation of the . EXAM MEASUREMENTS: GESTATIONAL AGE / DATING Physician Established: Not yet established Dates by LMP: 03/09/2020 (10 weeks/3 days) EDC: 12/14/2020 Dates by First Scan: No previous this is first scan Dates by Current Scan for: (8 weeks/2 days) EDC: 12/29/2020 MATERNAL ANATOMY Uterus: 9.4 x 5.5 x 6.3 cm Right Ovary: 1.4 x 1.0 x 1.7 Left Ovary: 3.3 x 1.5 x 3.2 Post CDS / Adnexa: wnl Presence of free fluid: none Presence of corpus luteal cyst: mixed lesion left ovary measures 1.7 x 1.5 x 1.6 cm GESTATION / SURVEY CRL: 1.9 (8 weeks/2 days) Yolk Sac (normal less than 6mm): 0.4 cm Heart Rate: 165 bpm Rhythm: Normal IUP: Viable IUP Date of LMP: 03/09/2020 Beta HcG (if available): not available Single viable IUP that does not correlate with LMP. IMPRESSION: Single viable intrauterine corresponding to ultrasound age 8 weeks 2 days with estimated da te of delivery 12/29/2020
[2020-05-21 10:16] LABS: HCT 45.5 % (34.0-46.0); HGB 14.9 gm/dL (11.4-16.0); MCHC 32.7 g/dL (31.0-37.0); Mean Platelet Volume 6.9; Platelet Count 287 k/uL (150-450); RBC 4.95 m/uL (3.80-5.40); RDW 12.5 % (11.5-15.5); WBC 9.1 k/uL (3.8-10.6)
[2020-05-21 21:53] LABS: HIV 2 AB Non-Reactive (Non-Reactive); HIV AB P24 Non-Reactive (Non-Reactive); HIV P24 AG Non-Reactive (Non-Reactive)
[2020-05-21 23:32] LABS: Hepatitis B Surface Antigen Non-Reactive (Non-Reactive)
== END | disposition home or self-care (01) ==
LOC: RADUSWWP 08:42
PROVIDERS: ATTEND Obstetrics & Gynecology
DX: Z36.9 Encounter for antenatal screening, unspecified (principal); Z34.81 Encounter for supervision of other normal pregnancy, first trimester; Z3A.08 8 weeks gestation of pregnancy
CPT/HCPCS: 36415; 76801; 76817; 82947; 85027; 86762; 86780; 86850; 86900; 86901; 87340; 87390

== ENCOUNTER 2020-08-09 19:43 | Emergency (ER) | payer OTHER ==
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
[2020-08-09 22:10] VITALS: BP 119/76; PULSE 88; RESP 16; TEMP 98.2
== END 2020-08-09 22:05 | disposition home or self-care (01) ==
LOC: EC 19:43
DX: Z36.89 Encounter for other specified antenatal screening (principal); Z88.0 Allergy status to penicillin
CPT/HCPCS: 76805; 99284

== ENCOUNTER → 2020-12-02 | Outpatient (CLI) | payer OTHER | LOC: FBPOP 21:32 | PROVIDERS: ATTEND Obstetrics & Gynecology | DX: O33.1 Maternal care for disproportion due to generally contracted pelvis (principal) ==

== ENCOUNTER 2020-12-23 05:50 | Inpatient (IN) | payer OTHER ==
--- NOTE | 2020-12-22 12:49 | P.HPOB ---
History of Present Illness H&P Date: 12/22/20 Chief Complaint: Requested induction of labor This patient is a pleasant 35-year-old 4 para 3 female estimated date of confinement 12/29/2020 estimated gestational age 39 and one sevenths weeks who presents to labor and delivery for requested induction of labor. is such that she had a LEEP done months after her last delivery in 2013. Patient was watched closely during this for cervical incompetence and had no issues. Patient however has been having a lot of contractions and felt to have maybe some cervical stenosis. She now presents for induction of labor. Review of Systems Genitourinary: Reports Menstruation: Reports amenorrhea Past Medical History Past Medical History: No Reported History Additional Past Medical History / Comment(s): She's had 3 spontaneous vaginal deliveries. History of Any Multi-Drug Resistant Organisms: None Reported Past Surgical History: Cholecystectomy Additional Past Surgical History / Comment(s): D&C, ovarian cystectomy Past Anesthesia/Blood Transfusion Reactions: Motion Sickness, Postoperative Nausea & Vomiting (PONV) Past Psychological History: No Psychological Hx Reported Smoking Status: Former smoker Past Alcohol Use History: None Reported Past Drug Use History: None Reported - Past Family History Mother Family Medical History: Cancer, Deep Vein Thrombosis (DVT) Medications and Allergies Home Medications Medication Instructions Recorded Confirmed Type Pnv,Calcium 72/Iron/Folic Acid 1 tab PO HS 08/09/20 12/02/20 History [ Plus Tablet] Allergies Allergy/AdvReac Type Severity Reaction Status Date / Time amoxicillin [Amoxicillin] Allergy Rash/Hives Verified 08/09/20 20:30 Penicillins Allergy Rash/Hives Verified 08/09/20 20:30 Exam - OBG Physical Exam Abdomen: bowel sounds normal, no diffuse tenderness, no bruit present, no guarding noted, no hepatomegaly, no splenomegaly, no mass Vulva: both: normal Vagina: normal moisture, no discharge Cervix: no lesion (Cervix is fingertip and 90% effaced in the office with questionable scarring), no discharge Uterus: enlarged (Fundal height 39 cm) Results blood work shows she is A positive, rubella immune, RPR nonreactive, hepatitis B negative, HIV is nonreactive, Glucola was 141 with a normal three- hour gtt., group B strep was negative, TDap was given on October 20, growth ultrasounds have been normal as well as anatomy. Assessment and Plan Assessment: This is a pleasant 35-year-old 4 para 3 female 39 and one sevenths weeks gestation who is admitted to labor and delivery for requested induction of labor. Patient is questionable scarring of the cervix from previous LEEP. Plan is to try to proceed with artificial rupture membranes and may need to lyse this tissue. (1) 39 weeks gestation of Status: Acute Code(s): Z3A.39 - 39 WEEKS GESTATION OF SNOMED Code(s): 24628982 (2) Elective induction of labor planned Status: Acute Code(s): YRF7228 - SNOMED Code(s): 027844990
[2020-12-23] MEDS ORDERED: LIDOCAINE 0.5% (PF) 5 MG/ML (50 ML SDV) SQ PRN (06:21)
[2020-12-23] MEDS ORDERED: OXYTOCIN 10 UNIT/ML 1 ML VIAL IM PRN (06:21)
[2020-12-23] MEDS ORDERED: CARBOPROST TROMETHAMINE 250 MCG/ML 1 ML AMP IM PRN (06:21)
[2020-12-23] MEDS ORDERED: TERBUTALINE 1 MG/ML VIAL SQ PRN (06:21)
[2020-12-23] MEDS ORDERED: OXYTOCIN 30 UNITS/500 ML NS 30 UNIT in SALINE 1 500ML.BAG IV SCH ×2 (06:21→14:22)
[2020-12-23] MEDS ORDERED: METHYLERGONOVINE 0.2 MG/ML 1 ML AMP IM PRN (06:21)
[2020-12-23] MEDS: LACTATED RINGERS 1,000 ML IV SCH ×2 (06:47→21:12)
[2020-12-23 07:29] LABS: Basophils % (A) 0 %; Eosinophils # (A) 0.4 k/uL (0-0.7); Eosinophils % (A) 3 %; HCT 37.5 % (34.0-46.0); HGB 13.2 gm/dL (11.4-16.0); Lymphocytes # (A) 2.5 k/uL (1.0-4.8); Lymphocytes % (A) 19 %; MCH 31.3 pg (25.0-35.0); MCHC 35.4 g/dL (31.0-37.0); MCV 88.5 fL (80.0-100.0); Mean Platelet Volume 7.3; Monocytes # (A) 0.7 k/uL (0-1.0); Monocytes % (A) 5 %; Neutrophils # (A) 9.7 k/uL (1.3-7.7); Neutrophils % (A) 73 %; Platelet Count 258 k/uL (150-450); RBC 4.23 m/uL (3.80-5.40); RDW 13.7 % (11.5-15.5); WBC 13.4 k/uL (3.8-10.6)
[2020-12-23] MEDS ORDERED: fentaNYL (PF) 50 MCG/ML 5 ML AMP ONE (08:56)
[2020-12-23] MEDS ORDERED: SODIUM CHLORIDE 0.9% 100 ML BAG ONE (08:56)
[2020-12-23] MEDS ORDERED: ROPIVACAINE 5MG/ML 20ML VIAL ONE (08:56)
[2020-12-23] MEDS ORDERED: BENZOCAINE/MENTHOL SPRAY 1 GM/SPRAY AEROSOL TOPICAL PRN (14:22)
[2020-12-23] MEDS ORDERED: bisacodyL 10 MG SUPP RECTAL PRN (14:22)
[2020-12-23] MEDS ORDERED: diphenhydrAMINE 50 MG/ML 1 ML VIAL IVP PRN (14:22)
[2020-12-23] MEDS ORDERED: LANOLIN CREAM 5 GM TUBE TOPICAL PRN (14:22)
[2020-12-23] MEDS ORDERED: SIMETHICONE 80 MG CHEWABLE PO PRN (14:22)
[2020-12-23] MEDS ORDERED: SENNOSIDES-DOCUSATE SODIUM 1 EACH TAB PO PRN (14:22)
[2020-12-23] MEDS ORDERED: diphenhydrAMINE 25 MG CAP PO PRN (14:22)
[2020-12-23] MEDS ORDERED: HYDROCORTISONE 2.5% RECTAL CREAM 30 GM TUBE RECTAL PRN (14:22)
[2020-12-23] MEDS ORDERED: ZOLPIDEM 5 MG TAB PO PRN (14:22)
[2020-12-23] MEDS ORDERED: ACETAMINOPHEN TAB 325 MG TAB PO PRN (14:22)
--- NOTE | 2020-12-23 16:53 | P.PROBDLV ---
Vaginal Delivery Note - . Vaginal Delivery Note: Normal vaginal delivery viable male infant Apgars 9 and 9 delivery time is 1351 hrs. Please see dictated H&P for intimate details of this patient's admission. Brief summary this is a pleasant 35-year-old 4 para 3 female estimated gestational age 39 and one sevenths weeks admitted this morning for induction of labor secondary to maternal discomfort and cervical stenosis. On admission patient is less than fingertip dilated and unable to have artificial rupture membranes for clear fluid. Labor is induced with Pitocin per protocol. Patient does get an epidural for pain control and this time unable to check her cervix and manually dilate her to 4 cm. This does relieve the stenosis. Patient therefore after quickly progresses and gets to complete. Patient pushes approximately 3 times pushes the head to the perineum. Posterior perineum is supported we have controlled delivery of the infant's head over the intact perineum. Mouth and nares are bulb suctioned. There is a nuchal cord 1 which is reduced. Infant's presentation was occiput anterior straight. With gentle downward traction we then have deliver the anterior and posterior shoulder and rest this infant's body. This is a vigorous viable male Apgars 9 and 9 delivery time was 1351 hrs. The umbilical cord is immediately clamped and cut due to history of jaundice with her first baby. He then have spontaneous delivery of the placenta appears intact. Estimated blood loss is 150 mL. Inspection of perineum shows no lacerations and no repairs required. All counts correct 3. There are no complications. and mother are stable in delivery room.
[2020-12-23] MEDS: IBUPROFEN 600 MG TAB PO PRN (22:08)
[2020-12-24] MEDS: IBUPROFEN 600 MG TAB PO PRN ×2 (04:10→12:49)
--- NOTE | 2020-12-24 05:54 | P.PROBDLV ---
Vaginal Delivery Note - . Vaginal Delivery Note: day #1. Patient is resting without complaints and wishes to go home. Vital signs are stable she is afebrile. Uterus is firm nontender and she is having normal lochia. My impression this is a normal course. Plan is to continue routine care discharge home later today.
--- NOTE | 2020-12-24 06:04 | P.DS ---
Providers Date of admission: 12/23/20 05:50 Expected date of discharge: 12/24/20 Attending physician: Vicente Chavira Primary care physician: Stated None - Discharge Diagnosis(es) (1) 39 weeks gestation of Current Visit: No Status: Acute (2) Elective induction of labor planned Current Visit: No Status: Acute Hospital Course: Please see dictated H&P for intimate details of this patient's admission. Brief summary this pleasant 35-year-old 4 para 3 female 39 and one sevenths weeks gestation admitted to labor and delivery for induction of labor. Patient is admitted quickly goes on have a vaginal delivery viable male . Please see dictated deliver note. day 1 patient's felt to be stable for discharge home follow up with me in 6 weeks. Procedures: Induction of labor normal vaginal delivery. Patient Condition at Discharge: Good Plan - Discharge Summary New Discharge Prescriptions: New Ibuprofen [Motrin] 600 mg PO Q6H PRN #30 tab PRN Reason: Pain No Action Cetirizine HCl [Zyrtec] 5 mg PO DAILY Discharge Medication List Cetirizine HCl [Zyrtec] 5 mg PO DAILY 12/23/20 [History] Ibuprofen [Motrin] 600 mg PO Q6H PRN #30 tab 12/24/20 [Rx] Follow up Appointment(s)/Referral(s): Vicente Chaviar MD [STAFF PHYSICIAN] - 1 Week Patient Instructions/Handouts: Vaginal Delivery (DC) Activity/Diet/Wound Care/Special Instructions: No intercourse or anything per vagina for 6 weeks. Please call if any fever, chills, excessive vaginal bleeding, and/or abdominal pain. Discharge Disposition: HOME SELF-CARE
[2020-12-24 08:40] VITALS: BP 122/76; PULSE 76; RESP 18; TEMP 98.1
== END 2020-12-24 14:55 | disposition home or self-care (01) | DRG 805 ==
LOC: 4FBP 05:50
PROVIDERS: ADMIT Obstetrics & Gynecology; ATTEND Obstetrics & Gynecology
PROC: 3E033VJ Introduction of Other Hormone into Peripheral Vein, Percutaneous Approach (ICD-10-PCS; principal; 2020-12-23)
PROC: 10E0XZZ Delivery of Products of Conception, External Approach (ICD-10-PCS; principal; 2020-12-23)
PROC: 10907ZC Drainage of Amniotic Fluid, Therapeutic from Products of Conception, Via Natural or Artificial Opening (ICD-10-PCS; principal; 2020-12-23)
PROC: 3E0R3NZ Introduction of Analgesics, Hypnotics, Sedatives into Spinal Canal, Percutaneous Approach (ICD-10-PCS; principal; 2020-12-23)
PROC: 00HU33Z Insertion of Infusion Device into Spinal Canal, Percutaneous Approach (ICD-10-PCS; principal; 2020-12-23)
DX: O69.81X0 Labor and delivery complicated by cord around neck, without compression, not applicable or unspecified (principal); O34.33 Maternal care for cervical incompetence, third trimester; Z37.0 Single live birth; M48.02 Spinal stenosis, cervical region; Z3A.39 39 weeks gestation of pregnancy; Z87.891 Personal history of nicotine dependence
CPT/HCPCS: 85025; 86850; 86900; 86901

== ENCOUNTER → 2023-02-12 | Outpatient (CLI) | payer BC ==
--- NOTE | 2023-02-13 08:11 | MM ---
Reason for Exam: Screening (asymptomatic). Baseline mammogram. Patient History: Menarche at age 13. First Full-Term at age 21. Patient has history of breast feeding. Patient used Hormonal Contraceptives for 10 years. Maternal grandmother had breast cancer at or over age 50. Paternal aunt had breast cancer at or over age 50. Mother had breast cancer under age 50. Last menstrual period: 12/31/2022 Risk Values: Fabi 5 year model risk: 0.7%. NCI Lifetime model risk: 18.6%. Prior Study Comparison: Patient's first Mammogram. Tissue Density: The breast tissue is heterogeneously dense. This may lower the sensitivity of mammography. Findings: Analyzed By CAD. There is no suspicious group of microcalcifications or new suspicious mass in either breast. Overall Assessment: Negative, BI-RAD 1 Management: Screening Mammogram of both breasts in 1 year. . Patient should continue monthly self-breast exams. A clinical breast exam by your physician is recommended on an annual basis. This exam should not preclude additional follow-up of suspicious palpable abnormalities. Note on Fabi scores and lifetime risk: 1. A Fabi score greater than 3% is considered moderate risk. If this is the case, consider specialist referral to assess eligibility for a risk reducing agent. 2. If overall lifetime risk for the development of breast cancer is 20% or higher, the patient may qualify for future screening with alternating mammogram and breast MRI. Electronically signed and approved by: Teodoro Shah M.D. Radiologis
== END | disposition home or self-care (01) ==
LOC: RADMAMWWP 15:42
PROVIDERS: ATTEND Obstetrics & Gynecology
DX: Z12.31 Encounter for screening mammogram for malignant neoplasm of breast (principal); Z80.3 Family history of malignant neoplasm of breast
CPT/HCPCS: 77063; 77067

== ENCOUNTER → 2023-02-16 | Outpatient (CLI) | payer BC ==
[2023-02-16 21:41] LABS: Basophils # (A) 0.06 X 10*3/uL (0.00-0.10); Basophils % (A) 0.6 %; Eosinophils # (A) 0.35 X 10*3/uL (0.04-0.35); Eosinophils % (A) 3.4 %; HCT 45.4 % (37.2-46.3); HGB 14.5 d/dL (12.0-15.0); Lymphocytes # (A) 2.82 X 10*3/uL (0.90-5.00); Lymphocytes % (A) 27.5 %; MCH 29.8 pg (27.0-32.0); MCHC 31.9 d/dL (32.0-37.0); MCV 93.2 FL (80.0-97.0); Mean Platelet Volume 9.7 FL (9.5-12.2); Monocytes # (A) 0.52 X 10*3/uL (0.20-1.00); Monocytes % (A) 5.1 %; NRBC Per 100 WBC 0 X 10*3/uL (0.00-0.01); Neutrophils # (A) 6.45 X 10*3/uL (1.80-7.70); Platelet Count 289 X 10*3/uL (140-440); RBC 4.87 X 10*6/uL (4.10-5.20); RDW 13.2 % (11.5-14.5); WBC 10.24 X 10*3/uL (4.50-10.00)
[2023-02-17 02:43] LABS: % Iron Saturation 27.97 (12.00-45.00); ALT 21 U/L (8-44); AST 18 U/L (13-35); Albumin 4.5 d/dL (3.8-4.9); Albumin/Globulin Ratio 1.96 Ratio (1.60-3.17); Alkaline Phosphatase 81 U/L (41-126); BUN/Creat Ratio 16.88 Ratio (12.00-20.00); Blood Urea Nitrogen 13.5 mg/dL (9.0-27.0); Calcium 9.7 mg/dL (8.7-10.3); Carbon Dioxide 25.4 mmol/L (21.6-31.8); Chloride 106 mmol/L (96-109); Chol/HDL Ratio 4.31 Ratio; Ferritin 65.9 ng/mL (10.0-291.0); Globulin 2.3 d/dL (1.6-3.3); Glucose 100 mg/dL (70-110); Iron 87 UG/DL (50-170); Potassium 4.4 mmol/L (3.5-5.5); Sodium 142 mmol/L (135-145); Total Bilirubin 0.4 mg/dL (0.3-1.2); Total Iron Binding Capacity 311 UG/DL (228-460); Total Protein 6.8 d/dL (6.2-8.2)
== END | disposition home or self-care (01) ==
LOC: LABWHC1 12:58
DX: Z00.00 Encounter for general adult medical examination without abnormal findings (principal); Z13.220 Encounter for screening for lipoid disorders; Z13.228 Encounter for screening for other metabolic disorders; Z13.1 Encounter for screening for diabetes mellitus; D64.9 Anemia, unspecified; R53.83 Other fatigue
CPT/HCPCS: 36415; 80053; 80061; 82607; 82728; 82746; 83036; 83540; 83550; 84443; 85025; 85045

== ENCOUNTER 2024-04-18 09:19 | Emergency (ER) | payer BC ==
[2024-04-18] MEDS ORDERED: KETOROLAC 15 MG/ML 1 ML VIAL ONE (10:12)
[2024-04-18] MEDS ORDERED: ONDANSETRON 4 MG/2 ML VIAL ONE (10:12)
[2024-04-18] MEDS ORDERED: SODIUM CHLORIDE 0.9% 1,000 ML BAG ONE (10:20)
[2024-04-18] MEDS ORDERED: cefTRIAXone IN SWFI 1,000 MG/10 ML SYRINGE IVP ONE (15:38)
[2024-04-18] MEDS ORDERED: ACETAMINOPHEN TAB 325 MG TAB ONE (15:38)
--- NOTE | 2024-05-19 10:16 | CT ---
EXAM: CT abdomen pelvis with IV contrast. DATE: 04/18/2024 INDICATION: Patient age:JUANITA CHAVARRIA : 1985 Reason for study: ABD/PEL with, Right flank pain, neg HCG, hx rosemary, appy, ovarian cyst removal. COMPARISON: None, please note PACS downtime occurred during the radiologist interpretation of these i mages with limited priors/reports.. TECHNIQUE: CT abdomen pelvis with IV contrast, with axial imaging and sagittal and coronal reformats following t he administration of 100 cc of Isovue-300 IV contrast material.. One or more CT dose reduction strate gies were utilized during this examination. Total DLP administered was 658.5 mGycm. FINDINGS: LOWER CHEST: Unremarkable ABDOMEN LIVER: Unremarkable GALLBLADDER AND BILE DUCTS: The gallbladder is surgically absent. PANCREAS: Unremarkable. SPLEEN: Unremarkable. ADRENAL GLANDS: Unremarkable. KIDNEYS AND URETERS: No evidence of hydronephrosis or renal calculus. The ureters are unremarkable. PELVIS BLADDER: Nondistended. REPRODUCTIVE: Right follicles are present measuring up to 2.8 cm. Uterus is retroverted. ABDOMEN & PELVIS STOMACH AND BOWEL: The appendix is surgically absent. Stomach and duodenum are unremarkable. No evid ence of bowel obstruction. PERITONEUM: No evidence of pneumoperitoneum or free fluid. VASCULATURE: No evidence of aortic aneurysm. MUSCULOSKELETAL: No acute osseous abnormalities LYMPH NODES: No gross evidence for lymphadenopathy. SOFT TISSUE/ABDOMINAL WALL: Unremarkable IMPRESSION: 1. Right ovarian follicles measuring up to 2.8 cm no other acute process in the right abdomen to cor relate with patient's pain. 2. The appendix and gallbladder are surgically absent. 3. No obstructive uropathy or renal calculus.
== END 2024-04-18 15:45 | disposition home or self-care (01) ==
LOC: EC 09:19
CPT/HCPCS: 74177; 87077; 87086; 87186; 96361; 96374; 96375; 99284